=== PATIENT | female | born 1985 | race Caucasian/White ===

== ENCOUNTER → 2016-08-10 | Outpatient (REF) | payer OTHER | LOC: M SFHCLERA 18:41 | PROVIDERS: ATTEND Physician Assistant | DX: N30.01 Acute cystitis with hematuria (principal) ==

== ENCOUNTER → 2017-09-27 | Outpatient (REF) | payer OTHER ==
[2017-09-27 15:56] LABS: HEMATOCRIT 39.5 % (36.0-47.0); HEMOGLOBIN 13.2 g/dl (12.0-15.5); MEAN CORPUSCULAR HEMOGLOBIN 31.7 pg (27.0-33.0); MEAN CORPUSCULAR HGB CONC 33.4 g/dl (32.0-36.5); MEAN CORPUSCULAR VOLUME 94.7 fl (80.0-96.0); PLATELET COUNT, AUTOMATED 256 10^3/uL (150-450); RED BLOOD COUNT 4.17 10^6/uL (4.00-5.40); RED CELL DISTRIBUTION WIDTH 12.1 % (11.5-14.5); WHITE BLOOD COUNT 5.7 10^3/uL (4.0-10.0)
[2017-09-27 16:20] LABS: ALBUMIN 3.9 GM/DL (3.2-5.2); ALBUMIN/GLOBULIN RATIO 1.34 (1.00-1.93); ALKALINE PHOSPHATASE 43 U/L (45-117); ALT/SGPT 26 U/L (12-78); ANION GAP 7 MEQ/L (8-16); AST/SGOT 16 U/L (7-37); BILIRUBIN,TOTAL 0.5 MG/DL (0.2-1.0); BLOOD UREA NITROGEN 11 MG/DL (7-18); CALCIUM LEVEL 9.2 MG/DL (8.5-10.1); CARBON DIOXIDE LEVEL 28 MEQ/L (21-32); CHLORIDE LEVEL 107 MEQ/L (98-107); CREATININE FOR GFR 0.78 MG/DL (0.55-1.30); GLOMERULAR FILTRATION RATE > 60.0 (>60); GLUCOSE, FASTING 82 MG/DL (70-100); POTASSIUM SERUM 4.5 MEQ/L (3.5-5.1); SODIUM LEVEL 142 MEQ/L (136-145); THYROID STIMULATING HORMONE 0.594 uIU/ML (0.358-3.740); TOTAL PROTEIN 6.8 GM/DL (6.4-8.2)
== END ==
LOC: M SFHCPLAZ 14:16
DX: R00.2 Palpitations (principal)

== ENCOUNTER → 2018-02-26 | Outpatient (REF) | payer OTHER, MEDICAID ==
[2018-02-26 15:03] LABS: HIV 1&2 SCREEN CENTAUR NEGATIVE (NEGATIVE)
[2018-02-26 15:21] LABS: CHLAMYDIA DNA AMPLIFICATION NEGATIVE (NEGATIVE); GC DNA AMPLIFICATION NEGATIVE (NEGATIVE)
[2018-03-01 15:16] LABS: HPV HYBRID CAPTURE II Negative (Negative)
== END ==
LOC: M SFHCPLAZ 11:53
PROVIDERS: ATTEND Nurse Practitioner Family
DX: Z12.4 Encounter for screening for malignant neoplasm of cervix (principal); Z11.3 Encounter for screening for infections with a predominantly sexual mode of transmission

== ENCOUNTER → 2018-03-26 | Outpatient (REF) | payer OTHER, MEDICAID | LOC: M SFHCPLAZ 11:27 | PROVIDERS: ATTEND Nurse Practitioner Family | DX: R79.89 Other specified abnormal findings of blood chemistry (principal) ==

== ENCOUNTER → 2020-08-01 | Outpatient (REF) | payer OTHER, MEDICAID | LOC: M SFHCWAGY 10:48 | PROVIDERS: ATTEND Specialist | DX: Z01.419 Encounter for gynecological examination (general) (routine) without abnormal findings (principal); Z12.4 Encounter for screening for malignant neoplasm of cervix ==

== ENCOUNTER → 2020-08-29 | Outpatient (CLI) | payer OTHER, MEDICAID ==
[2020-08-29 10:40] LABS: HEMATOCRIT 41.5 % (36.0-47.0); HEMOGLOBIN 13.4 g/dl (12.0-15.5); MEAN CORPUSCULAR HEMOGLOBIN 30.9 pg (27.0-33.0); MEAN CORPUSCULAR HGB CONC 32.3 g/dl (32.0-36.5); MEAN CORPUSCULAR VOLUME 95.8 fl (80.0-96.0); PLATELET COUNT, AUTOMATED 241 10^3/uL (150-450); RED BLOOD COUNT 4.33 10^6/uL (4.00-5.40); WHITE BLOOD COUNT 4.8 10^3/uL (4.0-10.0)
[2020-08-29 11:09] LABS: ALBUMIN 3.8 GM/DL (3.2-5.2); ALT/SGPT 20 U/L (12-78); BILIRUBIN,TOTAL 0.3 MG/DL (0.2-1.0); BLOOD UREA NITROGEN 14 MG/DL (7-18); CALCIUM LEVEL 8.9 MG/DL (8.5-10.1); CARBON DIOXIDE LEVEL 26 MEQ/L (21-32); CHLORIDE LEVEL 110 MEQ/L (98-107); CHOLESTEROL LEVEL 194 MG/DL (<200); CHOLESTEROL RISK RATIO 2.811 (<5); CREATININE FOR GFR 0.78 MG/DL (0.55-1.30); FERRITIN 15 NG/ML (8-252); FREE T4 0.84 NG/DL (0.76-1.46); GLOMERULAR FILTRATION RATE > 60.0 (>60); GLUCOSE, FASTING 90 MG/DL (70-100); HDL CHOLESTEROL 69 MG/DL (>40); LDL CHOLESTEROL 112 MG/DL (<100); NON-HDL-C 125 MG/DL; POTASSIUM SERUM 4.3 MEQ/L (3.5-5.1); SODIUM LEVEL 140 MEQ/L (136-145); TOTAL PROTEIN 6.7 GM/DL (6.4-8.2); TRIGLYCERIDES LEVEL 65 MG/DL (<150)
[2020-08-29 11:10] LABS: TOTAL 25(OH) VITAMIN D 28.8 NG/ML (30.0-100.0)
== END ==
LOC: M PLALAB 08:34
PROVIDERS: ATTEND Nurse Practitioner Family
DX: N92.0 Excessive and frequent menstruation with regular cycle (principal); Z13.220 Encounter for screening for lipoid disorders; R79.89 Other specified abnormal findings of blood chemistry

== ENCOUNTER → 2020-08-29 | Outpatient (CLI) | payer OTHER ==
--- NOTE | 2020-08-29 09:03 | REP ---
INDICATION: N92.6 ABNORMAL MENSTRUATION. COMPARISON: None. TECHNIQUE: Transabdominal and transvaginal scanning were performed. FINDINGS: Uterine dimensions are normal at 8.1 x 4.7 x 3.9 cm. Endometrial echo is 1.4 cm thick and centrally placed. No free fluid is seen in the cul-de-sac. Visualized bladder rashid are smooth. Nabothian cysts are seen in the cervix. Endometrium is somewhat heterogeneous. No free fluid. The right ovary has dimensions of 6.1 x 4.2 x 5.4 cm. It's Doppler flow is normal with a resistive index of 0.59. There is a slightly complex cyst in the right ovary 4.3 x 3.9 x 4.8 cm. The left ovary dimensions are normal as well at 3.9 x 2.0 x 2.3 cm. It's Doppler flow was normal with resistive index of 0.56. There is a complex cyst in the left ovary measuring 2.0 x 1.5 x 1.6 cm. IMPRESSION: Slightly complex 4.8 cm cystic area right ovary. Consider follow-up sonogram. Otherwise negative pelvic sonography.. <Electronically signed by Miquel Hairston > 08/29/20 [id number]
== END ==
LOC: M WHC 06:30
PROVIDERS: ATTEND Specialist
DX: N83.291 Other ovarian cyst, right side (principal); N92.6 Irregular menstruation, unspecified

== ENCOUNTER → 2020-09-26 | Outpatient (REF) | payer OTHER, MEDICAID | LOC: M SFHCWAGY 18:54 | PROVIDERS: ATTEND Specialist | DX: R87.612 Low grade squamous intraepithelial lesion on cytologic smear of cervix (LGSIL) (principal) ==

== ENCOUNTER → 2023-04-10 | Outpatient (REF) | payer OTHER, MEDICAID | LOC: M SFHCWAGY 17:44 | PROVIDERS: ATTEND Specialist | DX: Z01.419 Encounter for gynecological examination (general) (routine) without abnormal findings (principal) ==

== ENCOUNTER → 2023-05-14 | Outpatient (CLI) | payer OTHER | LOC: M WHC 13:29 | PROVIDERS: ATTEND Specialist | DX: N83.202 Unspecified ovarian cyst, left side (principal); R93.89 Abnormal findings on diagnostic imaging of other specified body structures ==

== ENCOUNTER 2023-05-29 11:31 | Emergency (ER) | payer OTHER ==
[~2023-05-29] VITALS: Ht 165.1 cm; Wt 55.2 kg
[2023-05-29] MEDS ORDERED: TRET0.02 (11:39)
[2023-05-29 12:43] LABS: BASO % 0.3 % (0.0-1.0); EOS % 0.1 % (0.0-3.0); HEMATOCRIT 42.4 % (36.0-47.0); HEMOGLOBIN 13.7 g/dl (12.0-15.5); LYMPH # 1.1 10^3/uL (1.5-5.0); LYMPH % 15.8 % (24.0-44.0); MEAN CORPUSCULAR HEMOGLOBIN 30.2 pg (27.0-33.0); MEAN CORPUSCULAR HGB CONC 32.3 g/dl (32.0-36.5); MEAN CORPUSCULAR VOLUME 93.4 fl (80.0-96.0); MONO # 0.4 10^3/uL (0.0-0.8); MONO % 5.3 % (2.0-8.0); NEUTROPHILS # 5.3 10^3/uL (1.5-8.5); NEUTROPHILS % 78.1 % (36.0-66.0); PLATELET COUNT, AUTOMATED 269 10^3/uL (150-450); RED BLOOD COUNT 4.54 10^6/uL (4.00-5.40); WHITE BLOOD COUNT 6.8 10^3/uL (4.0-10.0)
[2023-05-29 13:01] LABS: LIPASE 45 U/L (12-53)
[2023-05-29 13:03] LABS: ALBUMIN 3.6 G/DL (3.2-5.2); ALKALINE PHOSPHATASE 47 U/L (46-116); ALT/SGPT 19 U/L (7.0-40); AST/SGOT 22 U/L (<34); BILIRUBIN,DIRECT 0.2 MG/DL (<0.4); BILIRUBIN,TOTAL 0.7 MG/DL (0.3-1.2); TOTAL PROTEIN 6.7 G/DL (5.7-8.2)
[2023-05-29 13:11] LABS: HCG, SERUM QUALITATIVE NEGATIVE (NEGATIVE)
[2023-05-29] MEDS: MORPHINE 2 MG/ML 1ML VIAL IV ONE (14:52)
[2023-05-29] MEDS: NS 1,000 ML IV ONE (14:52)
[2023-05-29] MEDS: ONDANSETRON 4MG 2ML VIAL IV ONE (14:52)
[2023-05-29] MEDS: PERCOCET 5MG/325MG TAB PO ONE (15:24)
[2023-05-29] MEDS: KETOROLAC 30 MG/ML 1ML VIAL IV ONE (15:25)
[2023-05-29] MEDS ORDERED: ONDA4TAB6 PO (17:06)
[2023-05-29] MEDS ORDERED: OXYC1TAB23 PO (17:06)
[2023-05-29] MEDS ORDERED: KETO10TAB PO (17:06)
[2023-05-29 17:18] VITALS: BP 123/69; TEMP 98.6; O2SAT 98
== END 2023-05-29 17:33 | disposition home or self-care (01) ==
LOC: M ED 11:31
DX: N83.201 Unspecified ovarian cyst, right side (principal); Z79.2 Long term (current) use of antibiotics; Z79.899 Other long term (current) drug therapy
CPT/HCPCS: 76830; 76856; 80047; 80076; 83690; 84703; 85025; 93976; 96361; 96374; 96375; 99284; J1885; J2405

== ENCOUNTER 2023-06-17 13:19 | Day surgery (SDC) | payer OTHER ==
[~2023-06-17] VITALS: Ht 165.1 cm; Wt 53.9 kg
[~2023-06-17 13:19] MED LIST: KETO10TAB PO; ONDA4TAB6 PO; OXYC1TAB23 PO; TRET0.02
[2023-06-17] MEDS ORDERED: LR 1,000 ML IV SCH ×2 (13:50→19:25)
[2023-06-17 13:55] LABS: HEMOGLOBIN 12.5 g/dl (12.0-15.5); MEAN CORPUSCULAR HEMOGLOBIN 30.9 pg (27.0-33.0); MEAN CORPUSCULAR HGB CONC 32.9 g/dl (32.0-36.5); MEAN CORPUSCULAR VOLUME 93.8 fl (80.0-96.0); PLATELET COUNT, AUTOMATED 426 10^3/uL (150-450); RED BLOOD COUNT 4.05 10^6/uL (4.00-5.40); WHITE BLOOD COUNT 5.7 10^3/uL (4.0-10.0)
[2023-06-17] MEDS ORDERED: OXYC1TAB23 PO (16:40)
[2023-06-17] MEDS ORDERED: ROCURONIUM BROMIDE 50MG/5ML VIAL As Ordered ONE (17:31)
[2023-06-17] MEDS ORDERED: propofoL 200 MG/20 ML VIAL As Ordered ONE (17:31)
[2023-06-17] MEDS ORDERED: LIDOCAINE 2% 100MG/5ML SDV (FOR ANES.) As Ordered ONE (17:31)
[2023-06-17] MEDS ORDERED: MIDAZOLAM INJ 2MG/2ML VIAL As Ordered ONE (17:33)
[2023-06-17] MEDS ORDERED: fentaNYL 100 MCG/2 ML INJECTION As Ordered ONE (17:34)
[2023-06-17] MEDS ORDERED: SUGAMMADEX SODIUM 500 MG/5 ML VIAL (BRIDION) As Ordered ONE (17:34)
[2023-06-17] MEDS ORDERED: ACETAMINOPHEN 1000MG 100ML IV BAG As Ordered ONE (17:34)
[2023-06-17] MEDS ORDERED: ONDANSETRON 4MG 2ML VIAL As Ordered ONE (18:02)
[2023-06-17] MEDS ORDERED: IBUP-1022 PO (18:02)
[2023-06-17] MEDS ORDERED: KETOROLAC 60MG 2ML VIAL As Ordered ONE (18:04)
[2023-06-17] MEDS ORDERED: HYDROmorphone HCL 2MG/ML 1ML VIAL As Ordered ONE (18:25)
[2023-06-17] MEDS ORDERED: ePHEDrine SULFATE 25 MG/5 ML(5MG/ML) SYRINGE As Ordered ONE (19:16)
[2023-06-17] MEDS ORDERED: fentaNYL 100 MCG/2 ML INJECTION IV PRN (19:25)
[2023-06-17] MEDS ORDERED: ONDANSETRON 4MG 2ML VIAL IV PRN (19:25)
[2023-06-17 20:20] VITALS: BP 129/89; TEMP 97.9; O2SAT 99
== END 2023-06-17 21:02 | disposition home or self-care (01) ==
LOC: M SDC 13:19
PROVIDERS: ATTEND Specialist
DX: D27.0 Benign neoplasm of right ovary (principal); N70.92 Oophoritis, unspecified; N83.511 Torsion of right ovary and ovarian pedicle; R10.2 Pelvic and perineal pain
CPT/HCPCS: 36415; 58661; 81025; 85027; 88305; J0131; J0665; J1100; J1170; J1885; J2250; J2405; J3010

== ENCOUNTER → 2023-10-25 | Outpatient (CLI) | payer OTHER ==
[~2023-10-25] MED LIST changes: +IBUP-1022 PO; +ONDA-282 PO; -ONDA4TAB6 PO
== END ==
LOC: M RAD 08:30
PROVIDERS: ATTEND Family Medicine
DX: R22.2 Localized swelling, mass and lump, trunk (principal)

== ENCOUNTER → 2024-12-28 | Outpatient (REF) | payer OTHER ==
[~2024-12-28] MED LIST changes: -IBUP-1022 PO; +IBUP600T42 PO; -TRET0.02; +TRET0.046
== END ==
LOC: M SFHCWAGY 17:29
PROVIDERS: ATTEND Specialist
DX: Z12.4 Encounter for screening for malignant neoplasm of cervix (principal); R87.610 Atypical squamous cells of undetermined significance on cytologic smear of cervix (ASC-US)